=== PATIENT | female | born 1985 | race Caucasian/White ===

== ENCOUNTER 2018-07-29 09:32 | Emergency (ER) | payer OTHER ==
[~2018-07-29] VITALS: Ht 157.5 cm; Wt 101.8 kg
[2018-07-29 09:36] VITALS: BP 187/83; PULSE 88; RESP 18; Ht 157.5 cm; Wt 101.8 kg
[2018-07-29] MEDS ORDERED: KETOROLAC 30 MG INJ IV STA (10:00)
[2018-07-29] MEDS ORDERED: ONDANSETRON 4 MG INJ IV STA (10:00)
[2018-07-29] MEDS ORDERED: SOD CHLORIDE 0.9% 1,000 ML IV STA (10:00)
[2018-07-29] MEDS ORDERED: AMOXICILLIN 500 MG CAP PO ONE (11:30)
[2018-07-29] MEDS ORDERED: SOD CHLORIDE 0.9% 100 ML ONE (13:07)
[2018-07-29] MEDS ORDERED: IOHEXOL 300MG/ML 150 ML BTL ONE (13:07)
[2018-07-29] MEDS ORDERED: ACET325T33 PO (13:51)
[2018-07-29] MEDS ORDERED: ONDA4TAB14 PO (13:51)
--- NOTE | 2018-07-29 13:58 | ERD ---
ER Documentation Chief Complaint Chief Complaint sweating,epigastric pain vomitting & diarrhea x couple hrs, HPI 33-year-old female presenting with epigastric pain and sweating. She has very epigastric pain that started a couple hours ago. She had episodes of vomiting. Patient has some mild chest pain. Denies medical problems. NKDA. Surgical history , endometriosis and hernia repair. Social history denies ROS All systems reviewed and are negative except as per history of present illness. Medications Home Meds Active Scripts Acetaminophen* (Tylenol*) 325 Mg Tablet, 2 TAB PO Q6 PRN for PAIN AND OR ELEVATED TEMP, #20 TAB Prov:LAURIE KRAFT PA-C 07/29/18 Ondansetron (Ondansetron Odt) 4 Mg Tab.rapdis, 4 MG PO Q6H PRN for NAUSEA AND/OR VOMITING, #10 TAB Prov:LAURIE KRAFT PA-C 07/29/18 Allergies Allergies: Coded Allergies: No Known Allergy (Unverified , 07/29/18) PMhx/Soc History of Surgery: Yes (c section ) Anesthesia Reaction: No Hx Neurological Disorder: No Hx Respiratory Disorders: No Hx Cardiac Disorders: Yes (htn ) Hx Psychiatric Problems: No Hx Miscellaneous Medical Probl: No Hx Alcohol Use: No Hx Tobacco Use: No Smoking Status: Never smoker FmHx Family History: No diabetes, No coronary disease, No other Physical Exam Vitals Vital Signs Date Temp Pulse Resp B/P (MAP) Pulse Ox O2 O2 Flow FiO2 Time Delivery Rate 07/29/18 98.0 88 18 187/83 98 09:36 (117) Physical Exam GENERAL: The patient is well-appearing, well-nourished, in no acute distress HEENT: Atraumatic. Conjunctivae are pink. Pupils equal, round, and reactive to light. There is no scleral icterus. Tympanic membranes clear bilaterally. Oropharynx clear. NECK: C-spine is soft and supple. There is no meningismus. There is no cervical lymphadenopathy. CHEST: Clear to auscultation bilaterally. There are no rales, wheezes or rhonchi. HEART: Regular rate and rhythm. No murmurs, clicks, rubs or gallops. ABDOMEN: Normal active bowel sounds. No distention. No organomegaly. Mild tenderness palpation in the epigastric region. Result Diagram: 07/29/18 1010 07/29/18 1010 Results 24 hrs Laboratory Tests Test 07/29/18 10:10 07/29/18 10:13 White Blood Count 16.5 10^3/ul Red Blood Count 4.70 10^6/ul Hemoglobin 11.7 g/dl Hematocrit 38.0 % Mean Corpuscular Volume 80.9 fl Mean Corpuscular Hemoglobin 24.9 pg Mean Corpuscular Hemoglobin Concent 30.8 g/dl Red Cell Distribution Width 13.1 % Platelet Count 327 10^3/UL Mean Platelet Volume 10.5 fl Immature Granulocytes % 0.900 % Neutrophils % 77.3 % Lymphocytes % 14.2 % Monocytes % 6.5 % Eosinophils % 0.7 % Basophils % 0.4 % Nucleated Red Blood Cells % 0.0 /100WBC Immature Granulocytes # 0.150 10^3/ul Neutrophils # 12.8 10^3/ul Lymphocytes # 2.4 10^3/ul Monocytes # 1.1 10^3/ul Eosinophils # 0.1 10^3/ul Basophils # 0.1 10^3/ul Nucleated Red Blood Cells # 0.0 10^3/ul Urine Color YELLOW Urine Clarity SLIGHTLY CLOUDY Urine pH 5.0 Urine Specific [place] 1.025 Urine Ketones TRACE mg/dL Urine Nitrite NEGATIVE mg/dL Urine Bilirubin NEGATIVE mg/dL Urine Urobilinogen NEGATIVE mg/dL Urine Leukocyte Esterase NEGATIVE Junior/ul Urine Microscopic RBC 3 /HPF Urine Microscopic WBC 3 /HPF Urine Squamous Epithelial Cells FEW /HPF Urine Granular Casts FEW /HPF Urine Mucus MODERATE /HPF Urine Hemoglobin NEGATIVE mg/dL Urine Glucose NEGATIVE mg/dL Urine Total Protein 2+ mg/dl Sodium Level 142 mmol/L Potassium Level 4.5 mmol/L Chloride Level 105 mmol/L Carbon Dioxide Level 26 mmol/L Anion Gap 11 Blood Urea Nitrogen 20 mg/dl Creatinine 0.78 mg/dl Est Glomerular Filtrat Rate mL/min > 60 mL/min Glucose Level 144 mg/dl Calcium Level 9.7 mg/dl Total Bilirubin 0.2 mg/dl Direct Bilirubin 0.00 mg/dl Indirect Bilirubin 0.2 mg/dl Aspartate Amino Transf (AST/SGOT) 28 IU/L Alanine Aminotransferase (ALT/SGPT) 30 IU/L Alkaline Phosphatase 56 IU/L Troponin I < 0.012 ng/ml Total Protein 7.8 g/dl Albumin 4.5 g/dl Globulin 3.30 g/dl Albumin/Globulin Ratio 1.36 Lipase 64 U/L POC Beta HCG, Qualitative NEGATIVE Current Medications Medications Dose Sig/Lida Start Time Status Last (Trade) Ordered Route PRN Stop Time Admin Dose Reason Admin Sodium 1,000 ml @ Q1H STAT 07/29/18 DC 07/29/18 Chloride 1,000 mls/hr IV 10:00 07/29/18 10:18 10:59 Ondansetron 4 mg ONCE STAT 07/29/18 DC 07/29/18 HCl (Zofran IV 10:00 07/29/18 10:17 Inj) 10:02 Ketorolac 30 mg ONCE STAT 07/29/18 DC 07/29/18 Tromethamine IV 10:00 07/29/18 10:18 (Toradol) 10:02 Amoxicillin 500 mg ONCE ONCE 07/29/18 DC PO 11:30 07/29/18 (Amoxicillin) 11:32 IV Flush 10 ml STK-MED 07/29/18 DC 07/29/18 (NS 10 ml) ONCE .ROUTE 13:07 07/29/18 13:28 13:08 Sodium 100 ml @ ud STK-MED 07/29/18 DC 07/29/18 Chloride ONCE .ROUTE 13:07 07/29/18 13:28 13:08 Iohexol 150 ml STK-MED 07/29/18 DC 07/29/18 (Omnipaque ONCE .ROUTE 13:07 07/29/18 13:28 300mg/ ml) 13:08 Procedures/MDM DIAGNOSTIC IMAGING REPORT Patient: JONATHAN ARAUJO : 1985 Age: 33 Sex: F MR #: [id number] DOS: 07/29/18 0000 Ordering MD: SIDNEY KRAFT PA-C Location: [facility] Room/Bed: PROCEDURE: US Abdomen (right upper quadrant). CLINICAL INDICATION: Abdominal pain TECHNIQUE: Multiple real-time longitudinal and transverse images of the right upper quadrant of the abdomen were acquired utilizing a curved array transducer. Images were reviewed on a high-resolution PACS workstation. COMPARISON: None FINDINGS: Liver: Hepatomegaly (18.9 cm) and hepatic steatosis. No sonographic evidence of focal mass. Normal hepatopedal flow in the main portal vein. Gallbladder: Normal. No gallstone or gallbladder wall thickening. Biliary tree: No biliary dilatation. Common duct diameter is 2.6 mm. Pancreas: Normal. Right kidney: Length measures 11.3 cm. No renal mass, calculus, hydronephrosis or perinephric fluid. Vascular: Not visualized Other: No free fluid. IMPRESSION: 1. Hepatomegaly and hepatic steatosis. 2. No evidence of cholelithiasis or cholecystitis. DIAGNOSTIC IMAGING REPORT Patient: JONATHAN ARAUJO : 1985 Age: 33 Sex: F MR #: [id number] DOS: 07/29/18 1306 Ordering MD: SIDNEY KRAFT PA-C Location: [facility] Room/Bed: PROCEDURE: CT abdomen and pelvis with contrast. CLINICAL INDICATION: abdominal pain TECHNIQUE: CT scan of the abdomen and pelvis with contrast was performed on a multi-slice CT scanner . The patient was scanned after administration of 100 cc of Omnipaque-300 intravenous contrast. Sagittal and coronal reformatted images were obtained from the axial source images. One or more of the following dose reduction techniques were used: - Automated exposure control. - Adjustment of the mA and/or kV according to patient size. - Use of iterative reconstruction technique. DICOM images are available DLP 1275.7 mGycm. CTDIvol 23.5 mGy COMPARISON: None. FINDINGS: Lower thorax:The lung bases are clear. Liver: There is hepatomegaly of the liver with no focal lesion. The portal vein is intact without thrombus. Biliary: The gallbladder is unremarkable without inflammation. No biliary dilatation. Pancreas: Homogeneous density and enhancement of the pancreas without visible focal lesion or cystic abnormality. There is no pancreatic ductal dilatation. Spleen: Unremarkable without enlargement or focal lesion. Adrenal Glands: The adrenal glands are within normal limits without mass. Urinary: The kidneys are symmetric in size bilaterally with symmetric enhancement. There are no visible renal or ureteral stones. There is no hydronephrosis. Gastrointestinal: There is no bowel obstruction or focal bowel inflammation. The appendix is unremarkable. There is fecal filled colon. Lymph nodes: There are no enlarged lymph nodes. Vascular: The aorta is unremarkable. Peritoneum/mesentery: No free fluid or free air. Reproductive organs: The uterus and adnexal structures are grossly within normal limits. Follicular changes seen within the ovaries bilaterally. Musculoskeletal: There is no acute osseous abnormality Other: None IMPRESSION: Hepatomegaly No evidence of bowel obstruction or inflammation. There is no appendicitis. MDM: 33-year-old female presenting with epigastric pain. I have low suspicion for choledocholithiasis, cholecystitis: Cholangitis or pancreatitis. I have low suspicion for cardiac emergency. Patient is discharged with strict ER p recautions and supportive medications. Patient symptoms are likely associated with gastritis. Patient is told if symptoms change or worsen to return immediately to the ER. All questions answered at discharge Departure Diagnosis: Primary Impression: Epigastric pain Condition: Stable Patient Instructions: Epigastric Pain (Uncertain Cause) Referrals: [facility] YOU HAVE RECEIVED A MEDICAL SCREENING EXAM AND THE RESULTS INDICATE THAT YOU DO NOT HAVE A CONDITION THAT REQUIRES URGENT TREATMENT IN THE EMERGENCY DEPARTMENT. FURTHER EVALUATION AND TREATMENT OF YOUR CONDITION CAN WAIT UNTIL YOU ARE SEEN IN YOUR DOCTORS OFFICE WITHIN THE NEXT 1-2 DAYS. IT IS YOUR RESPONSIBILITY TO MAKE AN APPOINTMENT FOR FOLOW-UP CARE. IF YOU HAVE A PRIMARY DOCTOR --you should call your primary doctor and schedule an appointment IF YOU DO NOT HAVE A PRIMARY DOCTOR YOU CAN CALL OUR PHYSICIAN REFERRAL HOTLINE AT IF YOU CAN NOT AFFORD TO SEE A PHYSICIAN YOU CAN CHOSE FROM THE FOLLOWING [facility] [id number] [facility]. [facility] [address] [facility]. [facility] [address] [facility] [facility] [address] [facility]. [facility] [address] [facility]. [facility]. [address] Additional Instructions: FOLLOW UP WITH YOUR PRIMARY CARE PHYSICIAN TOMORROW.Return to this facility if you are not improving as expected. LAURIE KRAFT PA-C Jul 29, 2018 13:58
== END 2018-07-29 14:04 | disposition home or self-care (01) ==
LOC: FTE 09:32
DX: R10.13 Epigastric pain (principal); I10 Essential (primary) hypertension; R11.10 Vomiting, unspecified
CPT/HCPCS: 36415; 74177; 76705; 80053; 81001; 81025; 83690; 84484; 85025; 93005; 96361; 96374; 96375; J1885; J2405; J7030; Q9967; Z7502; Z7610